=== PATIENT | male | born 1955 | race Caucasian/White ===

== ENCOUNTER 2017-03-10 12:52 | Emergency (ER) | payer MEDICARE, OTHER ==
[~2017-03-10 12:52] MED LIST: ALBUTEROL0.63 MG/3 INH; CAT3 PO; COZ50 PO; HYDRALAZINE100 MG PO; LOP100 PO; PULRESP.5 INH; RENVELA800 MG PO; SODBICAR10 PO; Z300 PO
[2017-03-10 13:40] LABS: BASOPHILS 0.1 %; BASOPHILS ABSOLUTE 0.01 10/3/uL (0.0-0.16); EOSINOPHILS 0.3 %; EOSINOPHILS ABSOLUTE 0.02 10/3/uL (0.0-0.53); HEMOGLOBIN 11.5 g/dL (13.6-17.8); IMMATURE GRANULOCYTES 0.1 %; IMMATURE GRANULOCYTES ABSOLUTE 0.01 10/3/uL (0.0-0.11); LYMPHOCYTES 4.5 %; LYMPHOCYTES ABSOLUTE 0.33 10/3/uL (0.67-4.30); MEAN CORPUS HGB CONC 32.9 g/dL (32.0-36.0); MEAN CORPUSCULAR HEMOGLOB 29.9 pg (26.0-34.0); MEAN PLATELET VOLUME 10.1 fL (9.2-13.0); MONOCYTES 3.7 %; MONOCYTES ABSOLUTE 0.27 10/3/uL (0.21-1.20); NEUTROPHILS 91.3 %; NEUTROPHILS ABSOLUTE 6.63 10/3/uL (2.02-8.40); WHITE BLOOD CELLS 7.3 10/3/uL (4.5-10.5)
[2017-03-10 13:41] LABS: ER CBC TAT 0 Hrs 04 MinsNP; MANUAL DIFF NO %; MEAN CORPUSCULAR VOLUME 91.1 fL (80-100); PLATELET COUNT 85 10/3/uL (150-400); RBC DISTRIBUTION WIDTH 17.6 % (12.0-16.0); RED CELL COUNT 3.84 10/6/uL (4.7-6.1)
[2017-03-10 13:50] LABS: INTERNATIONAL NORMAL RATI 1.4 UNITS (-); PARTIAL THROMBO TIME 31.7 SEC (22.5-37.2); PROTIME (NOT ORD) 17.1 SEC (12.0-14.5)
[2017-03-10 13:59] LABS: BUN (BLOOD UREA NITROGEN) 53 MG/DL (6-23); CALCIUM, SERUM 8.3 MG/DL (8.5-10.4); CHLORIDE, SERUM 102 MMOL/L (96-112); CO2 (CARBON DIOXIDE) 25 MMOL/L (24-34); CREATININE 7.38 MG/DL (0.70-1.30); GFR AFRICAN AMERICAN 8 ML/MIN (>=60); GFR NON AFRICAN AMERICAN 7 ML/MIN (>=60); GLUCOSE, SERUM 90 MG/DL (60-99); POTASSIUM, SERUM 4.7 MMOL/L (3.5-5.3); SODIUM, SERUM 140 MMOL/L (135-148)
[2017-03-10 14:00] LABS: CHEST PAIN PROFILE TAT 0 Hrs 24 Mins; TROPONIN I 0.49 NG/ML (<0.05)
[2017-03-10 15:00] LABS: ALBUMIN 2.8 G/DL (3.5-5.0); DIRECT BILIRUBIN 0.3 MG/DL (0.0-0.4); INDIRECT BILIRUBIN(NOT ORDER) 0.4 MG/DL (0.1-0.9); TOTAL BILIRUBIN 0.7 MG/DL (0-1.2)
[2017-03-20] MEDS ORDERED: SENSIPAR90 MG PO (20:37)
[2017-03-20] MEDS ORDERED: LEXAPRO5 MG PO (20:37)
[2017-03-20] MEDS ORDERED: COLCRYS0.6 MG PO (20:39)
[2017-03-20] MEDS ORDERED: COREG12 PO (20:39)
[2017-03-20] MEDS ORDERED: ATV1 PO (20:40)
[2017-04-01] MEDS ORDERED: ASAB PO (17:13)
[2017-04-01] MEDS ORDERED: LIPITOR40 PO (17:13)
[2017-04-01] MEDS ORDERED: BISR PR (17:14)
[2017-04-01] MEDS ORDERED: IMDUR30 PO (17:15)
[2017-04-01] MEDS ORDERED: LOP100 PO (17:17)
[2017-04-01] MEDS ORDERED: MIRALAX POWDER1 PKT PO (17:33)
[2017-04-01] MEDS ORDERED: METPAKSF PO (17:41)
[2017-04-01] MEDS ORDERED: SEVE800T PO (17:42)
[2017-04-01] MEDS ORDERED: C1 PO (17:42)
[2017-04-01] MEDS ORDERED: NORV5 PO (17:50)
[2017-05-30] MEDS ORDERED: LOP100 PO (11:38)
[2017-05-30] MEDS ORDERED: NORV5 PO (11:39)
[2017-05-30] MEDS ORDERED: IMDUR30 PO (11:39)
[2017-05-30] MEDS ORDERED: SODBICAR10 PO (11:39)
[2017-05-30] MEDS ORDERED: LIPITOR40 PO (11:39)
[2017-05-30] MEDS ORDERED: ATV1 PO (11:40)
[2017-05-30] MEDS ORDERED: L80 PO (11:40)
[2017-05-30] MEDS ORDERED: C1 PO (11:41)
[2017-05-30] MEDS ORDERED: Z300 PO (11:42)
[2017-05-30] MEDS ORDERED: LEXAPRO5 MG PO (11:43)
[2017-05-30] MEDS ORDERED: P10 PO (11:47)
[2017-05-30] MEDS ORDERED: HALF81 PO (11:56)
[2017-06-03] MEDS ORDERED: ATROVENTUD INH (08:54)
[2017-06-03] MEDS ORDERED: ALBUTEROL5 INH (08:54)
[2017-06-03] MEDS ORDERED: PROAIR HFA INH (08:55)
[2017-06-03] MEDS ORDERED: PHOSLO PO (08:55)
[2017-06-03] MEDS ORDERED: MELATONIN10 M2 PO (08:55)
[2017-06-03] MEDS ORDERED: COZ50 PO (08:56)
[2017-06-07] MEDS ORDERED: PROTONIX PO ×2 (11:41→11:45)
== END 2017-03-10 17:03 | disposition home or self-care (01) ==
LOC: ER 12:52
PROVIDERS: Emergency Medicine
DX: N18.6 End stage renal disease (principal); K92.1 Melena; Z99.2 Dependence on renal dialysis; K64.9 Unspecified hemorrhoids; F17.200 Nicotine dependence, unspecified, uncomplicated; Z88.8 Allergy status to other drugs, medicaments and biological substances; Z79.899 Other long term (current) drug therapy
CPT/HCPCS: 36415; 71020; 74176; 80048; 80076; 83690; 83735; 84484; 85025; 85610; 85730; 86850; 86900; 86901; 93005; 99284